=== PATIENT | female | born 1930 | race Hispanic/Latino ===

== ENCOUNTER 2016-10-10 21:34 | Emergency (ER) | payer MEDICARE, OTHER ==
[2016-10-10 21:34] VITALS: BMI 24.7
[2016-10-10 21:49] VITALS: RESP 18
[2016-10-10] MEDS ORDERED: Morphine 2 mg/ml ISec IVP STA (22:07)
[2016-10-10] MEDS ORDERED: Sodium Chloride 0.9% 1,000 ML IV STA (22:07)
--- NOTE | 2016-10-10 22:09 | ED PDOC ---
Arrival/HPI - General Chief Complaint: Groin Pain Time Seen by Provider: 10/10/16 22:04 Historian: Patient - History of Present Illness Narrative History of Present Illness (Text): 10/10/16 22:06 Betzaida Gil is a 85 year old female, with a history of hypertension and hyperlipidemia, presents to the emergency department for evaluation of 1 day duration of right lower quadrant abdominal pain. Reports that pain is constant and is worsened with movement. Notes her last bowel movement was today which was normal. Denies any nausea, vomiting, diarrhea. Denies fever, chills, headache, dizziness, chest pain, shortness of breath, urinary symptoms or any other complaints at this time. Time/Duration: Other (yesterday 7 p.m.) Symptom Onset: Gradual Symptom Course: Unchanged Severity Level: Mild Activities at Onset: Light Context: Home Past Medical History - Provider Review Nursing Documentation Reviewed: Yes - Infectious Disease Hx of Infectious Diseases: None - Cardiac Hx Hypertension: Yes - Neurological Hx Vertigo: Yes Other/Comment: Tremors - Psychiatric Hx Depression: No Hx Emotional Abuse: No Hx Physical Abuse: No Hx Substance Use: No - Past Surgical History Past Surgical History: No Previous - Surgical History Other/Comment: Shoulder sx - Anesthesia Hx Anesthesia: Yes Hx Anesthesia Reactions: No Hx Malignant Hyperthermia: No - Suicidal Assessment Feels Threatened In Home Enviroment: No Family/Social History - Physician Review Nursing Documentation Reviewed: Yes Family/Social History: No Known Family HX Smoking Status: Never Smoked Hx Alcohol Use: No Hx Substance Use: No Hx Substance Use Treatment: No Allergies/Home Meds Allergies/Adverse Reactions: Allergies atenolol Allergy (Verified 10/10/16 21:45) ANAPHYLAXIS atorvastatin calcium [From Lipitor] Allergy (Verified 10/10/16 21:45) ANAPHYLAXIS ezetimibe [From Zetia] Allergy (Verified 10/10/16 21:45) ANAPHYLAXIS nifedipine Allergy (Verified 10/10/16 21:45) ANAPHYLAXIS omega-3 acid ethyl esters [From Lovaza] Allergy (Verified 10/10/16 21:45) ANAPHYLAXIS omeprazole [From Prilosec] Allergy (Verified 10/10/16 21:45) ANAPHYLAXIS omeprazole magnesium [From Prilosec] Allergy (Verified 10/10/16 21:45) ANAPHYLAXIS pravastatin Allergy (Verified 10/10/16 21:45) ANAPHYLAXIS ramipril Allergy (Verified 10/10/16 21:45) ANAPHYLAXIS terazosin HCl [From Hytrin] Allergy (Verified 10/10/16 21:45) ANAPHYLAXIS Home Medications: Home Meds Medication Instructions Recorded Confirmed Amlodipine/Valsartan [Exforge 10 1 tab PO DAILY 04/22/12 12/30/14 mg-160 mg] Coenzyme Q10 [Co Q-10] 100 mg PO DAILY 04/22/12 12/30/14 Metoprolol Tartrate 25 mg PO BID 04/22/12 12/30/14 Rosuvastatin Calcium [Crestor] 5 mg PO MWF 04/22/12 12/30/14 Review of Systems - Physician Review All systems were reviewed & negative as marked: Yes - Review of Systems Constitutional: Normal. absent: Fatigue, Fevers Respiratory: Normal. absent: SOB, Cough Gastrointestinal: Abdominal Pain (RLQ ). absent: Diarrhea, Nausea, Vomiting Neurological: Normal. absent: Headache, Dizziness Psychiatric: Normal Physical Exam - Physical Exam Narrative Physical Exam (Text): Constitutional: No acute distress. Head: Normocephalic. Atraumatic. Eyes: PERRL. ENT: Moist mucous membranes. Neck: Supple. Cardiovascular: Regular rate. Chest: No tenderness. Respiratory: Clear to auscultation bilaterally. GI: Soft. Nontender. Nondistended. No mass or hernia. Back: No CVA tenderness. Musculoskeletal: No tenderness or swelling of extremities. Skin: No rash. Neurologic: Alert, no focal deficit. Vital Signs Reviewed: Yes Vital Signs Temp Pulse Resp BP Pulse Ox 10/10/16 23:51 97.5 F L 63 18 160/88 H 98 10/10/16 21:48 98.0 F 73 18 163/95 H 99 Temperature: Afebrile Blood Pressure: Hypertensive Pulse: Regular Respiratory Rate: Normal Appearance: Positive for: Well-Appearing, Non-Toxic, Comfortable Pain Distress: None Mental Status: Positive for: Alert and Oriented X 3 Medical Decision Making ED Course and Treatment: 10/10/16 22:09 Impression: A 85 year old female who presents to the emergency department for evaluation of Right lower quadrant abdominal pain. On PE, the abdomen is soft, nontender, and nondistended. Plan: -- CT abdomen pelvis -- Labs -- Morphine -- IV fluids -- Urinalysis -- Reassess and disposition Progress Notes: 10/10/16 23:30 CT abdomen pelvis reviewed: IMPRESSION: No acute process is seen within the abdomen and pelvis. Left nephrolithiasis without obstructive uropathy. Bilateral pelvocaliectasis. Normal appendix. Diverticulosis without diverticulitis. Severe degenerative changes of the spine. Indeterminate nodule right base. For lung nodules 4 mm or smaller in size, if the patient is considered high risk for lung cancer or metastatic disease, follow-up CT in 12 months is recommended. If the patient is considered low risk and under age 35, no follow-up is needed. 10/10/16 23:30 On reevaluation the patient feels better and is in no acute distress. I have discussed the results and plan with the patient, who expresses understanding. Patient given the opportunity to ask question, all questions were answered and there is agreement with the plan to discharge the patient home. Patient is stable for discharge. Patient was instructed to follow up with physician/clinic in 1-2 days or return if symptoms persist/worsen or new concerning symptoms arise. - Lab Interpretations Lab Results: 10/10/16 22:24 10/10/16 22:24 Lab Results 10/10/16 22:24: WBC 6.8, RBC 5.07, Hgb 15.0, Hct 44.6, MCV 88.0, MCH 29.6, MCHC 33.6, RDW 13.9, Plt Count 308, MPV 9.6, Gran % 65.2, Lymph % (Auto) 26.8, [place] % (Auto) 6.5 H, Eos % (Auto) 1.2 L, Baso % (Auto) 0.3, Gran # 4.41, Lymph # 1.8 , [place] # 0.4, Eos # 0.1, Baso # 0.02, Sodium 141, Potassium 4.0, Chloride 99, Carbon Dioxide 29, Anion Gap 17, BUN 16, Creatinine 0.9, Est GFR ( Amer) > 60, Est GFR (Non-Af Amer) 59, Random Glucose 97, Calcium 10.2, Total Bilirubin 1.2, AST 34, ALT 21, Alkaline Phosphatase 82, Total Protein 8.2, Albumin 4.5, Globulin 3.8, Albumin/Globulin Ratio 1.2, Lipase 169, Urine Color Yellow, Urine Appearance Clear, Urine pH 5.5, Ur Specific [place] >= 1.030, Urine Protein Trace H, Urine Glucose (UA) Negative, Urine Ketones 15 H, Urine Blood Moderate H, Urine Nitrate Negative, Urine Bilirubin Negative, Urine Urobilinogen 0.2, Ur Leukocyte Esterase Small H, Urine RBC 20 - 25, Urine WBC 5 - 10, Ur Epithelial Cells 3 - 4, Amorphous Sediment Few, Urine Bacteria Many I have reviewed the lab results: Yes - RAD Interpretation Narrative RAD Interpretations (Text): EXAM: CT Abdomen and Pelvis Without Intravenous Contrast FINDINGS: Lower thorax: Small subpleural nodule of the right lateral base, or mm. Lung bases otherwise clear. Minimal scarring of the right middle lobe medial margin. ABDOMEN: Liver: There are no focal liver lesions present. Gallbladder and bile ducts: The gallbladder is normal. Pancreas: The pancreas appears normal. No ductal dilation. Spleen: The spleen is overall unremarkable for mass. Punctate calcific focus spleen, consistent with previous granulomatous disease. Adrenals: Left adrenal slightly prominent without mass.The stomach is normal. Kidneys and ureters: Multiple small nonobstructing stones in the left kidney are present. Largest on mid-upper pole measuring 1 cm. There is an extrarenal pelvis seen on the right. Mild pelvocaliectasis also seen bilaterally without significant hydronephrosis. Stomach and bowel: Moderate diverticulosis is present in the sigmoid and descending colon. Moderate amount of formed fecal material is seen within the large bowel loops which may be associated with constipation. There is no evidence of intestinal perforation or obstruction. Small incomplete left anal hernia containing bowel loops without obstruction. Appendix: A normal appendix is identified. PELVIS: Bladder: Unremarkable. No stones. Reproductive: Unremarkable as visualized. ABDOMEN and PELVIS: Intraperitoneal space: Unremarkable. No free air. No significant fluid collection. Bones/joints: The spine demonstrates severe degenerative changes at multiple levels. No acute fracture. No dislocation. Soft tissues: Small fat-containing paraumbilical hernia is present. Vasculature: The aorta demonstrates moderate atherosclerotic calcification. No abdominal aortic aneurysm. Lymph nodes: Unremarkable. No enlarged lymph nodes. Other findings: Severe multilevel foraminal stenosis is present. IMPRESSION: No acute process is seen within the abdomen and pelvis. Left nephrolithiasis without obstructive uropathy. Bilateral pelvocaliectasis. Normal appendix. Diverticulosis without diverticulitis. Severe degenerative changes of the spine. Indeterminate nodule right base. For lung nodules 4 mm or smaller in size, if the patient is considered high risk for lung cancer or metastatic disease, follow-up CT in 12 months is recommended. If the patient is considered low risk and under age 35, no follow-up is needed. Radiology Orders: 10/10/16 22:30 ABD & PELVIS W/O PO OR IV CONT [CT] Stat Client Integration Manager: Radiologist - Medication Orders Current Medication Orders: Discontinued Medications Sodium Chloride (Sodium Chloride 0.9%) 1,000 mls @ 200 mls/hr IV .Q5H STA Stop: 10/11/16 03:06 Last Admin: 10/10/16 22:25 Dose: 200 MLS/HR eMAR Start Stop Document 10/10/16 22:25 MR (Rec: 10/10/16 22:25 MR [id number]) Intravenous Solution Start Date 10/10/16 Start Time 22:25 Ketorolac Tromethamine (Toradol) 15 mg IVP STAT STA Stop: 10/10/16 22:28 Last Admin: 10/10/16 22:42 Dose: 15 MG IVP Administration Document 10/10/16 22:42 MR (Rec: 10/10/16 22:42 MR [id number]) Charges for Administration # of IVP Administrations 1 Morphine Sulfate (Morphine) 2 mg IVP STAT STA Stop: 10/10/16 22:08 Last Admin: 10/10/16 22:26 Dose: Not Given Non-Admin Reason: Patient Refused - Scribe Statement The provider has reviewed the documentation as recorded by the Katie Martinez Provider Attestation: All medical record entries made by the Katie were at my direction and personally dictated by me. I have reviewed the chart and agree that the record accurately reflects my personal performance of the history, physical exam, medical decision making, and the department course for this patient. I have also personally directed, reviewed, and agree with the discharge instructions and disposition. Disposition/Present on Arrival - Present on Arrival Any Indicators Present on Arrival: No History of DVT/PE: No History of Uncontrolled Diabetes: No Urinary Catheter: No History of Decub. Ulcer: No History Surgical Site Infection Following: None - Disposition Have Diagnosis and Disposition been Completed?: Yes Diagnosis: Constipation Disposition: HOME/ ROUTINE Disposition Time: 23:39 Patient Plan: Discharge Condition: STABLE Discharge Instructions (ExitCare): Constipation (ED) Prescriptions: Docusate [Colace] 100 mg PO BID #30 cap Polyethylene Glycol 3350 [Miralax] 17 gm PO DAILY #238 gm Referrals: Chaz Chris MD [Primary Care Provider] - Follow up with primary
[2016-10-10 22:38] LABS: EOS # 0.1 (0.0-0.7)
[2016-10-10 22:41] LABS: ADD MANUAL DIFF? NO; PH,URINE 5.5 (4.7-8.0); URINE BILIRUBIN NEGATIVE (NEGATIVE); URINE BLOOD MODERATE (NEGATIVE); URINE GLUCOSE (UA) NEGATIVE (NEGATIVE); URINE KETONE 15 mg/dL (NEGATIVE); URINE LEUKOCYTE ESTERASE SMALL Leu/uL (NEGATIVE); URINE PROTEIN TRACE mg/dL (<30 mg/dL); URINE UROBILINOGEN 0.2 E.U./dL (<1 E.U./dL)
[2016-10-10 22:42] LABS: URINE APPEARANCE CLEAR (CLEAR); URINE COLOR YELLOW (YELLOW)
[2016-10-10 22:47] LABS: BASO # 0.02 K/mm3 (0.0-2.0); BASO % 0.3 % (0.0-3.0); EOS % 1.2 % (1.5-5.0); GRAN # 4.41 (1.4-6.5); GRAN % 65.2 % (50.0-68.0); LYMPH # 1.8 (1.2-3.4); LYMPH % 26.8 % (22.0-35.0); MEAN CORPUSCULAR HEMOGLOBIN 29.6 pg (25.0-35.0); MEAN CORPUSCULAR HGB CONC 33.6 g/dl (31.0-37.0); MEAN PLATELET VOLUME 9.6 fl (7.0-11.0); MONO # 0.4 (0.1-0.6); MONO % 6.5 % (1.0-6.0); PLATELET COUNT 308 10^3/uL (120.0-450.0); RED CELL DISTRIBUTION WIDTH 13.9 % (11.5-14.5); WHITE BLOOD COUNT 6.8 10^3/ul (4.5-11.0)
[2016-10-10 22:48] LABS: ALB/GLOB RATIO 1.2 (1.1-1.8); ALKALINE PHOSPHATASE 82 U/L (38-133); ALT/SGPT 21 U/L (7-56); AST/SGOT 34 U/L (15-39); BILIRUBIN,TOTAL 1.2 mg/dL (0.2-1.3); BLOOD UREA NITROGEN 16 mg/dL (7-21); CALCIUM 10.2 mg/dL (8.4-10.5); CARBON DIOXIDE 29 mmol/L (21-33); CHLORIDE 99 mmol/L (98-107); GFR AFRICAN-AMERICAN > 60; GLUCOSE,RANDOM 97 mg/dL (70-110); HEMATOCRIT 44.6 % (36.0-48.0); LIPASE 169 U/L (23-300); SODIUM 141 mmol/L (132-148); TOTAL PROTEIN 8.2 g/dL (5.8-8.3)
[2016-10-10 22:52] LABS: URINE AMORPHOUS SEDIMENT FEW; URINE BACTERIA MANY (NEG); URINE RBC 20 - 25 /hpf (0-2)
[2016-10-10 23:52] VITALS: BP 160/88; PULSE 63; TEMP 97.5; O2SAT 98
--- NOTE | 2016-10-11 11:12 | CT ---
PROCEDURE: CT Abdomen and Pelvis without intravenous contrast HISTORY: RLQ pain COMPARISON: None. TECHNIQUE: Without contrast.. Contrast Dose: Radiation dose: Total exam DLP = 377 mGy-cm. FINDINGS: LOWER THORAX: There is some nodular scarring in the right middle lobe and adjacent to the pleural surface in the right lower lobe. LIVER: Unremarkable. No gross lesion or ductal dilatation. GALLBLADDER AND BILE DUCTS: Unremarkable. PANCREAS: Unremarkable. No gross lesion or ductal dilatation. SPLEEN: Unremarkable. ADRENALS: Unremarkable. No mass. KIDNEYS AND URETERS: There is a 10 mm nonobstructing stone in the upper pole of the left kidney VASCULATURE: Unremarkable. No aortic aneurysm. BOWEL: Unremarkable. No obstruction. No gross mural thickening. There is a left inguinal hernia contains a segment of small bowel. There is no associated obstruction or inflammation. APPENDIX: Unremarkable. Normal appendix. PERITONEUM: Unremarkable. No free fluid. No free air. LYMPH NODES: Unremarkable. No enlarged lymph nodes. BLADDER: Unremarkable. REPRODUCTIVE: Unremarkable. BONES: There is disc degeneration a multiple levels OTHER FINDINGS: The report concurs with the preliminary [facility] report IMPRESSION: No acute intra-abdominal findings Small left inguinal hernia without obstruction Normal appendix
== END 2016-10-11 00:09 | disposition home or self-care (01) ==
LOC: ED 21:34
DX: K59.00 Constipation, unspecified (principal); I10 Essential (primary) hypertension; E78.5 Hyperlipidemia, unspecified
CPT/HCPCS: 74176; 80053; 81001; 83690; 85025; 87086; 96374; 99283; J1885; J7040

== ENCOUNTER 2016-10-14 05:41 | Emergency (ER) | payer MEDICARE, OTHER ==
[2016-10-14 05:42] VITALS: BMI 24.7
--- NOTE | 2016-10-14 06:19 | ED PDOC ---
Arrival/HPI - General Time Seen by Provider: 10/14/16 06:17 Historian: Patient, Family - History of Present Illness Narrative History of Present Illness (Text): 10/14/16 06:18 Betzaida Gil is an 85 year old female who presents to the ED accompanied by daughter complaining of abdominal pain. Daughter states patient was seen in the ED for RLQ pain 5 days ago, diagnosed with constipation, and discharged home with Miralax and Colace. Daughter states patient is still experiencing RLQ pain , but notes pain is now radiating to her right flank pain and feels like a burning sensation. Patient also notes constipation. Patient denies any fever, chills, chest pain, shortness of breath, nausea, vomiting, diarrhea, urinary symptoms, back pain, neck pain, headache, dizziness, or any other complaints. PMD: Dr. Bernie Chris Time/Duration: < week (5 days) Symptom Onset: Gradual Symptom Course: Unchanged Quality: Burning Activities at Onset: Rest, Light Context: Home Past Medical History - Provider Review Nursing Documentation Reviewed: Yes - Infectious Disease Hx of Infectious Diseases: None - Cardiac Hx Hypertension: Yes - Neurological Hx Vertigo: Yes Other/Comment: Tremors - Psychiatric Hx Depression: No Hx Emotional Abuse: No Hx Physical Abuse: No Hx Substance Use: No - Past Surgical History Past Surgical History: No Previous - Surgical History Other/Comment: Shoulder sx - Anesthesia Hx Anesthesia: Yes Hx Anesthesia Reactions: No Hx Malignant Hyperthermia: No - Suicidal Assessment Feels Threatened In Home Enviroment: No Family/Social History - Physician Review Nursing Documentation Reviewed: Yes Family/Social History: No Known Family HX Smoking Status: Never Smoked Hx Alcohol Use: No Hx Substance Use: No Hx Substance Use Treatment: No Allergies/Home Meds Allergies/Adverse Reactions: Allergies atorvastatin calcium [From Lipitor] Allergy (Verified 10/14/16 09:03) SWELLING ezetimibe [From Zetia] Allergy (Verified 10/14/16 09:03) PAIN nifedipine [From Adalat] Allergy (Verified 10/14/16 09:03) SWELLING omega-3 acid ethyl esters [From Lovaza] Allergy (Verified 10/14/16 09:03) VOMITING omeprazole [From Prilosec] Allergy (Verified 10/14/16 09:03) SWELLING omeprazole magnesium [From Prilosec] Allergy (Verified 10/14/16 09:03) SWELLING pravastatin Allergy (Verified 10/14/16 06:40) ANAPHYLAXIS ramipril Allergy (Verified 10/14/16 06:40) ANAPHYLAXIS terazosin HCl [From Hytrin] Allergy (Verified 10/14/16 06:40) ANAPHYLAXIS valsartan [From Diovan] Allergy (Verified 10/14/16 08:59) SWELLING pravostatin Allergy (Uncoded 10/14/16 08:59) PAIN tonormin Allergy (Uncoded 10/14/16 08:59) SWELLING Home Medications: Home Meds Medication Instructions Recorded Confirmed Amlodipine/Valsartan [Exforge 10 1 tab PO DAILY 04/22/12 10/14/16 mg-160 mg] Meclizine [Antivert] 25 mg PO Q6 10/14/16 10/14/16 Rosuvastatin Calcium [Crestor] 5 mg PO MWF 10/14/16 10/14/16 Ubidecarenone [Coenzyme Q10] 100 mg PO DAILY 10/14/16 10/14/16 Review of Systems - Physician Review All systems were reviewed & negative as marked: Yes - Review of Systems Constitutional: Normal. absent: Fevers Eyes: Normal ENT: Normal Respiratory: Normal. absent: SOB, Cough Cardiovascular: Normal. absent: Chest Pain Gastrointestinal: Abdominal Pain, Constipation. absent: Diarrhea, Nausea, Vomiting Genitourinary Female: Normal. absent: Dysuria, Frequency, Hematuria, Urine Output Changes Musculoskeletal: Back Pain. absent: Neck Pain Skin: Normal. absent: Rash Neurological: Normal. absent: Headache, Dizziness Endocrine: Normal Hemo/Lymphatic: Normal Psychiatric: Normal Physical Exam Vital Signs Reviewed: Yes Vital Signs Temp Pulse Resp BP Pulse Ox 10/14/16 10:16 98.1 F 66 18 132/69 100 10/14/16 08:16 60 18 136/71 100 Temperature: Afebrile Blood Pressure: Normal Pulse: Regular Respiratory Rate: Normal Appearance: Positive for: Well-Appearing, Non-Toxic, Comfortable Pain Distress: None Mental Status: Positive for: Alert and Oriented X 3 - Systems Exam Head: Present: Atraumatic, Normocephalic Pupils: Present: PERRL Extroacular Muscles: Present: EOMI Conjunctiva: Present: Normal Mouth: Present: Moist Mucous Membranes Neck: Present: Normal Range of Motion Respiratory/Chest: Present: Clear to Auscultation, Good Air Exchange. No: Respiratory Distress, Accessory Muscle Use Cardiovascular: Present: Regular Rate and Rhythm, Normal S1, S2. No: Murmurs Abdomen: Present: Normal Bowel Sounds. No: Tenderness, Distention, Peritoneal Signs Back: Present: Normal Inspection Upper Extremity: Present: Normal Inspection. No: Cyanosis, Edema Lower Extremity: Present: Normal Inspection. No: Edema Neurological: Present: GCS=15, CN II-XII Intact, Speech Normal Skin: Present: Warm, Dry, Normal Color. No: Rashes Psychiatric: Present: Alert, Oriented x 3, Normal Insight, Normal Concentration Medical Decision Making ED Course and Treatment: 10/14/16 06:18 Impression: 85 year old female complaining of RLQ pain radiating to right flank and constipation. Plan: -- CT Abdomen and Pelvis w/o contrast -- EKG -- Labs, cardiac enzymes, amylase, lipase, blood cultures -- Urinalysis, urine cultures -- Zofran -- Morphine -- Reassess and disposition Prior Visits: Notes and results from previous visits were reviewed. On 10/10/2016, pt was seen in the ED for RLQ pain. Pt had a CT abdomen and pelvis performed which showed: Moderate amount of formed fecal material is seen within the large bowel loops which may be associated with constipation. There is no evidence of intestinal perforation or obstruction. No acute process is seen within the abdomen and pelvis. Left nephrolithiasis without obstructive uropathy. Bilateral pelvocaliectasis. Normal appendix. Diverticulosis without diverticulitis. Severe degenerative changes of the spine. Indeterminate nodule right base. Pt was d/c home with Miralax and Colace. Progress Notes: 10/14/16 06:44 Reviewed EKG, NSR at [address]-segment elevations or depressions, no T-wave inversions, normal intervals. - Lab Interpretations Microbiology Results: Microbiology Results 10/14/16 07:30 Blood-Venous Blood Culture - Preliminary NO GROWTH AFTER 3 DAYS 10/14/16 07:30 Blood-Venous Blood Culture - Preliminary NO GROWTH AFTER 3 DAYS Lab Results: 10/14/16 06:55 10/14/16 06:55 Lab Results 10/14/16 08:50: Urine Color Yellow, Urine Appearance Clear, Urine pH 6.0, Ur Specific [place] 1.015, Urine Protein Negative, Urine Glucose (UA) Negative, Urine Ketones 15 H, Urine Blood Trace-intact H, Urine Nitrate Negative, Urine Bilirubin Negative, Urine Urobilinogen 0.2, Ur Leukocyte Esterase Small H, Urine RBC 0 - 2, Urine WBC 5 - 10, Ur Epithelial Cells 3 - 4, Urine Bacteria Trace 10/14/16 06:55: WBC 6.4, RBC 4.97, Hgb 14.7, Hct 42.9, MCV 86.3, MCH 29.6, MCHC 34.3, RDW 13.5, Plt Count 306, MPV 9.4, Gran % 67.3, Lymph % (Auto) 22.2, [place] % (Auto) 9.7 H, Eos % (Auto) 0.6 L, Baso % (Auto) 0.2, Gran # 4.28, Lymph # 1.4 , [place] # 0.6, Eos # 0.0, Baso # 0.01, PT 12.1 H, INR 1.12 H, APTT 27.9, Sodium 139, Potassium 5.4 H, Chloride 101, Carbon Dioxide 29, Anion Gap 14, BUN 16, Creatinine 0.9, Est GFR ( Amer) > 60, Est GFR (Non-Af Amer) 59, Random Glucose 116 H, Calcium 10.0, Total Bilirubin 1.5 H, AST 36, ALT 22, Alkaline Phosphatase 88, Lactate Dehydrogenase 421, Total Creatine Kinase 148, Troponin I 0.03, Total Protein 7.5, Albumin 4.0, Globulin 3.4, Albumin/Globulin Ratio 1.2 , Amylase 67, Lipase 165 - RAD Interpretation Radiology Orders: 10/14/16 06:19 ABD & PELVIS W/O PO OR IV CONT [CT] Stat - EKG Interpretation Interpreted by ED Physician: Yes Type: 12 lead EKG - Medication Orders Current Medication Orders: Discontinued Medications Morphine Sulfate (Morphine) 2 mg IVP STAT STA Stop: 10/14/16 06:21 Last Admin: 10/14/16 07:00 Dose: 2 MG MAR Pain Assessment Document 10/14/16 07:00 YP (Rec: 10/14/16 07:00 YP [id number]) Pain Reassessment Is this a pain reassessment? No Sleep Is patient sleeping during reassessment? No Presence of Pain Presence of Pain Yes Pain Scale Used Pain Scale Used Numeric IVP Administration Document 10/14/16 07:00 YP (Rec: 10/14/16 07:00 YP [id number]) Charges for Administration # of IVP Administrations 1 Ondansetron HCl (Zofran Inj) 4 mg IVP STAT STA Stop: 10/14/16 06:21 Last Admin: 10/14/16 07:00 Dose: 4 MG IVP Administration Document 10/14/16 07:00 YP (Rec: 10/14/16 07:00 YP [id number]) Charges for Administration # of IVP Administrations 1 - Transfer of Care Patient signed out to Dr:: charan Wilson Statement The provider has reviewed the documentation as recorded by the Katie Ricci Provider Attestation: All medical record entries made by the Katie were at my direction and personally dictated by me. I have reviewed the chart and agree that the record accurately reflects my personal performance of the history, physical exam, medical decision making, and the department course for this patient. I have also personally directed, reviewed, and agree with the discharge instructions and disposition. Disposition/Present on Arrival - Present on Arrival Any Indicators Present on Arrival: No History of DVT/PE: No History of Uncontrolled Diabetes: No Urinary Catheter: No History Surgical Site Infection Following: None - Disposition Have Diagnosis and Disposition been Completed?: Yes Diagnosis: Shingles Disposition: HOME/ ROUTINE Disposition Time: 07:00 Condition: GOOD Discharge Instructions (ExitCare): Shingles (ED) Additional Instructions: Please follow up with your doctor in the next week. Return to the ER for any worsening symptoms, fever, rash that spreads to different parts of your body, or for any other concerns. Prescriptions: Hydrocodone/Acetaminophen [[place] 325 mg-5 mg] 1 tab PO Q6H PRN #8 tab PRN Reason: Pain, Severe (8-10) Valacyclovir HCl [Valacyclovir] 1,000 mg PO Q8H #42 tablet Referrals: Chaz Chris MD [Primary Care Provider] - Follow up with primary
[2016-10-14] MEDS ORDERED: Morphine 2 mg/ml ISec IVP STA (06:20)
[2016-10-14 07:01] LABS: ADD MANUAL DIFF? NO
[2016-10-14 07:09] LABS: BASO # 0.01 K/mm3 (0.0-2.0); BASO % 0.2 % (0.0-3.0); EOS % 0.6 % (1.5-5.0); GRAN # 4.28 (1.4-6.5); GRAN % 67.3 % (50.0-68.0); HEMATOCRIT 42.9 % (36.0-48.0); LYMPH # 1.4 (1.2-3.4); LYMPH % 22.2 % (22.0-35.0); MEAN CELL VOLUME 86.3 fL (80.0-105.0); MEAN CORPUSCULAR HEMOGLOBIN 29.6 pg (25.0-35.0); MEAN CORPUSCULAR HGB CONC 34.3 g/dl (31.0-37.0); MEAN PLATELET VOLUME 9.4 fl (7.0-11.0); MONO # 0.6 (0.1-0.6); MONO % 9.7 % (1.0-6.0); PLATELET COUNT 306 10^3/uL (120.0-450.0); RED CELL DISTRIBUTION WIDTH 13.5 % (11.5-14.5); WHITE BLOOD COUNT 6.4 10^3/ul (4.5-11.0)
--- NOTE | 2016-10-14 07:11 | ED PDOC ---
Physical Exam Vital Signs Reviewed: Yes Vital Signs Pulse Resp BP Pulse Ox 10/14/16 08:16 60 18 136/71 100 Temperature: Afebrile Blood Pressure: Normal Pulse: Regular Respiratory Rate: Normal Appearance: Positive for: Well-Appearing, Non-Toxic, Comfortable Pain Distress: None Mental Status: Positive for: Alert and Oriented X 3 Medical Decision Making ED Course and Treatment: 10/14/16 07:00 Patient signed out to me from overnight by Dr. Elliott, pending labs, imaging, reevaluation and disposition. On reevaluation, the patient is resting comfortable, awaiting CT results. 10/14/16 08:45 Abdomen/Pelvis CT: Creator : Johanna Gutiérrez MD FINDINGS: LOWER THORAX: There is left basilar atelectasis/scarring and bibasilar atelectasis. There is a 5 mm nodule in the right middle lobe LIVER: The liver is normal in size. There is no intrahepatic biliary ductal dilatation. GALLBLADDER AND BILE DUCTS: There are no calcified gallstones. PANCREAS: The pancreas is normal in size. There are scattered calcifications in the pancreas. SPLEEN: The spleen is normal in size. ADRENALS: Both adrenal glands are normal in size. KIDNEYS AND URETERS: There is mild cortical atrophy in the right kidney. There is no right nephrolithiasis. There is mild fullness in the right renal pelvis. The right ureteral is not dilated. The left kidney is normal in size. There are several nonobstructing stones, the largest in the upper pole measures 10 mm. The left ureteral is not dilated. There is no obstructive uropathy. VASCULATURE: There are atherosclerotic aortoiliac calcifications. No aortic aneurysm. BOWEL: The small bowel loops are normal in caliber. There is sigmoid diverticulosis without CT evidence for acute diverticulitis. APPENDIX: Normal appendix. PERITONEUM: No free fluid. No free air. LYMPH NODES: Unremarkable. No enlarged lymph nodes. BLADDER: Normal in appearance. REPRODUCTIVE: There is an enlarged lobular fibroid uterus. 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 There is mild levoscoliosis in the lumbar spine. OTHER FINDINGS: There is a fat containing left inguinal hernia. There is a small fat containing umbilical hernia. IMPRESSION: 1. Nonobstructing stones in the left kidney, the largest in the upper pole measures 10 mm. No evidence of obstructive uropathy. 2. Lobular fibroid uterus. 3. Sigmoid diverticulosis without CT evidence for acute diverticulitis. 10/14/16 09:55 Patient reports burning pain on the right lower abdomen radiating to the back. On examination the patient has, what seen to be the began of Herpes Zoster rash on the right lower abdomen. I have discussed the results and plan with the patient, who expresses understanding. Patient in agreement with plan to discharged home. Patient is stable for discharge. Patient was instructed to follow up with physician/clinic in 1-2 days or return if symptoms worsen or new concerning symptoms arise. - Lab Interpretations Lab Results: 10/14/16 06:55 10/14/16 06:55 Lab Results 10/14/16 08:50: Urine Color Yellow, Urine Appearance Clear, Urine pH 6.0, Ur Specific [place] 1.015, Urine Protein Negative, Urine Glucose (UA) Negative, Urine Ketones 15 H, Urine Blood Trace-intact H, Urine Nitrate Negative, Urine Bilirubin Negative, Urine Urobilinogen 0.2, Ur Leukocyte Esterase Small H, Urine RBC 0 - 2, Urine WBC 5 - 10, Ur Epithelial Cells 3 - 4, Urine Bacteria Trace 10/14/16 06:55: WBC 6.4, RBC 4.97, Hgb 14.7, Hct 42.9, MCV 86.3, MCH 29.6, MCHC 34.3, RDW 13.5, Plt Count 306, MPV 9.4, Gran % 67.3, Lymph % (Auto) 22.2, [place] % (Auto) 9.7 H, Eos % (Auto) 0.6 L, Baso % (Auto) 0.2, Gran # 4.28, Lymph # 1.4 , [place] # 0.6, Eos # 0.0, Baso # 0.01, PT 12.1 H, INR 1.12 H, APTT 27.9, Sodium 139, Potassium 5.4 H, Chloride 101, Carbon Dioxide 29, Anion Gap 14, BUN 16, Creatinine 0.9, Est GFR ( Amer) > 60, Est GFR (Non-Af Amer) 59, Random Glucose 116 H, Calcium 10.0, Total Bilirubin 1.5 H, AST 36, ALT 22, Alkaline Phosphatase 88, Lactate Dehydrogenase 421, Total Creatine Kinase 148, Troponin I 0.03, Total Protein 7.5, Albumin 4.0, Globulin 3.4, Albumin/Globulin Ratio 1.2 , Amylase 67, Lipase 165 I have reviewed the lab results: Yes - RAD Interpretation Radiology Orders: 10/14/16 06:19 ABD & PELVIS W/O PO OR IV CONT [CT] Stat - Medication Orders Current Medication Orders: Discontinued Medications Morphine Sulfate (Morphine) 2 mg IVP STAT STA Stop: 10/14/16 06:21 Last Admin: 10/14/16 07:00 Dose: 2 MG MAR Pain Assessment Document 10/14/16 07:00 YP (Rec: 10/14/16 07:00 YP [id number]) Pain Reassessment Is this a pain reassessment? No Sleep Is patient sleeping during reassessment? No Presence of Pain Presence of Pain Yes Pain Scale Used Pain Scale Used Numeric IVP Administration Document 10/14/16 07:00 YP (Rec: 10/14/16 07:00 YP [id number]) Charges for Administration # of IVP Administrations 1 Ondansetron HCl (Zofran Inj) 4 mg IVP STAT STA Stop: 10/14/16 06:21 Last Admin: 10/14/16 07:00 Dose: 4 MG IVP Administration Document 10/14/16 07:00 YP (Rec: 10/14/16 07:00 YP [id number]) Charges for Administration # of IVP Administrations 1 - Scribe Statement The provider has reviewed the documentation as recorded by the Arminibe Brigette Kirkland Provider Scribe Attestation: All medical record entries made by the Scribe were at my direction and personally dictated by me. I have reviewed the chart and agree that the record accurately reflects my personal performance of the history, physical exam, medical decision making, and the department course for this patient. I have also personally directed, reviewed, and agree with the discharge instructions and disposition. Disposition/Present on Arrival - Present on Arrival Any Indicators Present on Arrival: No History of DVT/PE: No History of Uncontrolled Diabetes: No Urinary Catheter: No History of Decub. Ulcer: No History Surgical Site Infection Following: None - Disposition Have Diagnosis and Disposition been Completed?: Yes Disposition Time: 09:55 Referrals: Chaz Chris MD [Primary Care Provider] - Follow up with primary
[2016-10-14 07:18] LABS: ALB/GLOB RATIO 1.2 (1.1-1.8); ALKALINE PHOSPHATASE 88 U/L (38-133); ALT/SGPT 22 U/L (7-56); AMYLASE 67 U/L (35-125); AST/SGOT 36 U/L (15-39); BILIRUBIN,TOTAL 1.5 mg/dL (0.2-1.3); BLOOD UREA NITROGEN 16 mg/dL (7-21); CARBON DIOXIDE 29 mmol/L (21-33); CHLORIDE 101 mmol/L (98-107); GFR AFRICAN-AMERICAN > 60; GLUCOSE,RANDOM 116 mg/dL (70-110); LIPASE 165 U/L (23-300); POTASSIUM 5.4 mmol/L (3.6-5.0); SODIUM 139 mmol/L (132-148); TOTAL PROTEIN 7.5 g/dL (5.8-8.3)
[2016-10-14 07:19] LABS: INR 1.12 (0.93-1.08); PARTIAL THROMBOPLASTIN TIME 27.9 Seconds (23.7-30.8)
[2016-10-14 07:27] LABS: TROPONIN I 0.03 ng/mL
[2016-10-14 08:17] VITALS: RESP 18; O2SAT 100
--- NOTE | 2016-10-14 08:45 | CT ---
PROCEDURE: CT Abdomen and Pelvis without intravenous contrast HISTORY: Abdominal pain COMPARISON: 10/10/2016 TECHNIQUE: Technique: Multidetector CT scan was performed for targeted evaluation of urinary calculi without administration of oral or intravenous contrast. This CT exam was performed using one or more of the following dose reduction techniques: Automated exposure control, adjustment of the MA and/or KV according to patient size, and/or use of iterative reconstruction technique. Coronal and sagittal reformatted images were obtained. Radiation dose: Total exam DLP = 373.59 mGy-cm. FINDINGS: LOWER THORAX: There is left basilar atelectasis/scarring and bibasilar atelectasis. There is a 5 mm nodule in the right middle lobe LIVER: The liver is normal in size. There is no intrahepatic biliary ductal dilatation. GALLBLADDER AND BILE DUCTS: There are no calcified gallstones. PANCREAS: The pancreas is normal in size. There are scattered calcifications in the pancreas. SPLEEN: The spleen is normal in size. ADRENALS: Both adrenal glands are normal in size. KIDNEYS AND URETERS: There is mild cortical atrophy in the right kidney. There is no right nephrolithiasis. There is mild fullness in the right renal pelvis. The right ureteral is not dilated. The left kidney is normal in size. There are several nonobstructing stones, the largest in the upper pole measures 10 mm. The left ureteral is not dilated. There is no obstructive uropathy. VASCULATURE: There are atherosclerotic aortoiliac calcifications. No aortic aneurysm. BOWEL: The small bowel loops are normal in caliber. There is sigmoid diverticulosis without CT evidence for acute diverticulitis. APPENDIX: Normal appendix. PERITONEUM: No free fluid. No free air. LYMPH NODES: Unremarkable. No enlarged lymph nodes. BLADDER: Normal in appearance. REPRODUCTIVE: There is an enlarged lobular fibroid uterus. 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 There is mild levoscoliosis in the lumbar spine. OTHER FINDINGS: There is a fat containing left inguinal hernia. There is a small fat containing umbilical hernia. IMPRESSION: 1. Nonobstructing stones in the left kidney, the largest in the upper pole measures 10 mm. No evidence of obstructive uropathy. 2. Lobular fibroid uterus. 3. Sigmoid diverticulosis without CT evidence for acute diverticulitis.
[2016-10-14 09:00] LABS: URINE BILIRUBIN NEGATIVE (NEGATIVE); URINE BLOOD TRACE-INTACT (NEGATIVE); URINE GLUCOSE (UA) NEGATIVE (NEGATIVE); URINE KETONE 15 mg/dL (NEGATIVE); URINE LEUKOCYTE ESTERASE SMALL Leu/uL (NEGATIVE); URINE PROTEIN NEGATIVE mg/dL (<30 mg/dL); URINE UROBILINOGEN 0.2 E.U./dL (<1 E.U./dL)
[2016-10-14 09:04] LABS: URINE APPEARANCE CLEAR (CLEAR); URINE COLOR YELLOW (YELLOW)
[2016-10-14 09:07] LABS: URINE BACTERIA TRACE (NEG); URINE RBC 0 - 2 /hpf (0-2)
[2016-10-14 10:17] VITALS: BP 132/69; PULSE 66; TEMP 98.1
--- NOTE | 2016-10-14 19:00 | CARD ---
APPROVED REPORT EKG Measurement Heart [id number] FL 132P-5 [id number] <Conclusion> Normal sinus rhythm Normal ECG
== END 2016-10-14 11:15 | disposition home or self-care (01) ==
LOC: ED 05:41
DX: B02.9 Zoster without complications (principal); I10 Essential (primary) hypertension
CPT/HCPCS: 74176; 80053; 81001; 82150; 82550; 83615; 83690; 84484; 85025; 85610; 85730; 87040; 93005; 96374; 96375; 99284; J2270; J2405